=== PATIENT | male | born 1975 | race Two or more races ===

== ENCOUNTER 2022-02-07 11:04 | Emergency (ER) | payer OTHER ==
[~2022-02-07] VITALS: Ht 180.3 cm; Wt 106.6 kg
[2022-02-07] MEDS ORDERED: ONDANSETRON HCL/PF 4 MG/2 ML VIAL IVP ONE (12:00)
[2022-02-07] MEDS ORDERED: MORPHINE SULFATE INJ 2 MG/ML DISP.SYRIN IV ONE (12:00)
[2022-02-07] MEDS ORDERED: IV NS 0.9% 1,000 ML BAG IV ONE (12:00)
[2022-02-07 12:30] LABS: BASOPHILS % (AUTO) 0.3 % (0.0-2.0); HEMATOCRIT 45 % (39-51); HEMOGLOBIN 14.7 g/dL (13.5-17.5); LYMPHOCYTES # (AUTO) 0.4 K/uL (0.8-4.8); LYMPHOCYTES % (AUTO) 3.1 % (20.0-44.0); MEAN CORPUSCULAR HGB CONC 33 g/dl (31.0-36.0); MEAN CORPUSCULAR VOLUME 90 fL (80-96); MONOCYTES # (AUTO) 0.3 K/uL (0.1-1.30); MONOCYTES % (AUTO) 2.4 % (2.0-12.0); NEUTROPHILS # (AUTO) 12.6 K/uL (1.8-8.9); NEUTROPHILS % (AUTO) 94.2 % (43.0-81.0); PLATELET COUNT (AUTO) 234 K/uL (150-450); RED BLOOD CELL COUNT(AUTO) 4.98 MIL/uL (4.5-6.0); WHITE BLOOD COUNT (AUTO) 13.4 K/uL (4.3-11.0)
[2022-02-07 12:30] LABS: BILIRUBIN,URINE NEGATIVE (NEGATIVE); COLOR,URINE YELLOW (YELLOW); LEUKOCYTE ESTERASE ,URINE NEGATIVE (NEGATIVE); NITRITE, URINE NEGATIVE (NEGATIVE); PH,URINE 5.5 (5.0-8.0); PROTEIN,URINE TRACE mg/dl (NEGATIVE); UGLUCOSE NEGATIVE (NEGATIVE); UROBILINOGEN,URINE 0.2 EU/dL (0.2)
[2022-02-07 12:45] LABS: BACTERIA,URINE Few /HPF (None Seen); RBC,URINE 0-2 /HPF (0-2); SQUAMOUS EPITHELIAL CELL,UR Few /HPF (None Seen)
[2022-02-07 12:45] LABS: BILIRUBIN,DIRECT 0.1 mg/dL (0.0-0.2); BILIRUBIN,TOTAL 0.5 mg/dL (0.2-1.0); CALCIUM, SERUM 10.7 mg/dL (8.5-10.1); CREATININE 1.5 mg/dL (0.6-1.3); POTASSIUM 4.3 mmol/L (3.5-5.1); TOTAL PROTEIN, SERUM 7.1 g/dL (6.4-8.2)
[2022-02-07] MEDS ORDERED: ONDANSETRON HCL/PF 4 MG/2 ML VIAL ONE (12:55)
--- NOTE | 2022-02-07 13:16 | NUR ---
BIB SELF , FROM HOME C/O LEFT LOWER PAIN, X RAY SHOWS KIDNEY STONE NOTED ON LEFT SIDE, IV 20 GAUGE RFA , MEDICATION ORDERS CARRIED OUT NO SIDE EFFECTS NOTED, MADE COMFORTABLE AT THIS TIME
[2022-02-07] MEDS ORDERED: KETOROLAC TROMETHAMINE 15 MG/ML VIAL ONE ×2 (13:26→14:49)
[2022-02-07] MEDS ORDERED: HYDROMORPHONE 1 MG/1 ML DISP.SYRIN IV ONE (13:30)
[2022-02-07] MEDS ORDERED: KETOROLAC TROMETHAMINE INJ 30 MG/ML VIAL IV ONE (13:30)
[2022-02-07] MEDS ORDERED: [UNRECOGNIZED DRUG - CODE] (13:35)
[2022-02-07] MEDS ORDERED: TAMS-12 PO (14:35)
[2022-02-07] MEDS ORDERED: HYDR-3972 PO (14:35)
[2022-02-07] MEDS ORDERED: HYDROMORPHONE 1 MG/1 ML DISP.SYRIN ONE (14:49)
--- NOTE | 2022-02-07 15:03 | NUR ---
PT BEING D/C , STABLE CONDITION, ALL MD ORDERS CARRIED OUT, TOLERATED PAIN MEDICATION AND ORDERS WELL NO ADVERSE SIDE EFFECTS NOTED, ABLE TO AMBULATE, BROTHER WILL CONTROL ROOM OPERATOR PT AND TAKE HOME, WILL FOLLOW UP WITH DIRECTIONS, ORDERS, AND INFORMATION UNDERSTOOD WHEN EXPLAINED ON PLAN OF ACTION TO TX THE KIDNEY STONES AT [facility] AND WHERE INSURANCE CARRIER WILL HELP PROVIDE INSURANCE.
[2022-02-07 21:08] VITALS: BP 140/70
== END 2022-02-07 21:08 | disposition home or self-care (01) ==
LOC: ER 11:16
DX: N23 Unspecified renal colic (principal); R94.4 Abnormal results of kidney function studies
CPT/HCPCS: 36415; 74176; 80048; 80076; 81001; 83690; 85025; 96361; 96374; 96375; 99284; J1170; J1885 ×2; J2270 ×2; J2405; J7030